=== PATIENT | female | born 1990 | race Caucasian/White ===

== ENCOUNTER 2021-11-30 14:01 | Emergency (ER) | payer BC ==
[2021-11-30 15:10] LABS: Bilirubin Neg (Negative); Blood, Urine Negative (Negative); Clarity Clear (Clear); Glucose, Urine (Dipstick) Normal (Negative); Ketone, Urine Negative (Negative); Leukocyte Negative (Negative); Nitrite Negative (Negative); Protein, Urine (Dipstick) Negative (Neg-Trace); Urobilinogen Normal mg/dL (Less than 2)
[2021-11-30] MEDS ORDERED: Ondansetron PF 4 MG/2 ML Vial ONE (15:25)
[2021-11-30 15:54] LABS: #Monocytes 0.5 10x3/uL (0.0-1.1); #Neutrophils 4.4 10x3/uL (1.5-8.4); %Basophils 0.4 % (0.0-2.0); %Eosinophils 0.2 % (0.0-6.0); %Lymphocytes 7.9 % (18.0-47.0); %Monocytes 9.8 % (0.0-10.0); %Neutrophils 81.3 % (40.0-75.0); Hemoglobin 12.5 g/dL (12.0-15.5); Mean Corpuscular HGB CONC 35.9 g/dL (32.0-36.0); Mean Corpuscular Hemoglobin 31.3 pg (27.0-33.0); Mean Corpuscular Volume 87.2 fl (81.6-98.3); Mean Platelet Volume 10.9 fl (7.4-10.4); Platelet Count 135 10x3/uL (150-450); RBC Distribution Width 12.3 % (11.5-14.5); Red Blood Cell (RBC) Count 3.99 10x6/uL (3.90-5.03); White Blood Cell (WBC) Count 5.4 10x3/uL (3.5-10.5)
[2021-11-30 15:59] LABS: ALT (SGPT) 13 U/L (8-55); AST (SGOT) 19 U/L (5-34); Albumin 4.2 g/dL (3.5-5.0); Alkaline Phosphatase 33 U/L (40-110); Anion Gap 12 mmol/L (10-20); BUN (Urea Nitrogen) 7 mg/dL (7.0-18.7); Bilirubin, Total 0.1 mg/dL (0.2-1.2); Calc. Creatinine Clearance 0 mL/min (70-130); Calcium 9.5 mg/dL (7.8-10.44); Carbon Dioxide 23 mmol/L (22-29); Chloride 102 mmol/L (98-107); Estimated GFR 120; Globulin 2.6 g/dL (2.4-3.5); Glucose 79 mg/dL (70-105); Lipase 9 U/L (8-78); Potassium 3.3 mmol/L (3.5-5.1); Protein, Total 6.8 g/dL (6.0-8.3); Sodium 134 mmol/L (136-145)
[2021-11-30] MEDS ORDERED: Acetaminophen 500 MG TAB ONE (16:40)
== END 2021-11-30 18:47 | disposition home or self-care (01) ==
LOC: CSHERS 14:01
DX: O98.511 Other viral diseases complicating pregnancy, first trimester (principal); U07.1 COVID-19; Z3A.12 12 weeks gestation of pregnancy
CPT/HCPCS: 80053; 81003; 83605; 83690; 85025; 96361; 96374; J2405; U0003; U0005

== ENCOUNTER 2022-05-29 11:12 | Inpatient (IN) | payer BC ==
[~2022-05-29 11:12] MED LIST: Bupivacaine HCl 0.5%/Epinephrine 1:200,000/PF 30 ml Vial ONE; Bupivacaine PF 0.5% 30 ML VIAL ONE; Bupivacaine/Epinephrine 0.25% 30 ML VIAL ONE
[2022-05-29 11:43] VITALS: BMI 32.1
[2022-05-29] MEDS: Lactated Ringer's 1,000 ML IV SCH ×2 (11:59→12:54)
[2022-05-29] MEDS ORDERED: Lidocaine 1% (PF) 30 ML VIAL ONE (12:32)
[2022-05-29] MEDS ORDERED: NS w/ Oxytocin 30 units 500 ML ONE (12:32)
[2022-05-29] MEDS ORDERED: Ibuprofen 800 MG TAB PO PRN (12:41)
[2022-05-29] MEDS ORDERED: NS w/ Oxytocin 30 units 500 ML IV SCH ×2 (12:41)
[2022-05-29] MEDS ORDERED: Promethazine HCl 25 MG/ML VIAL IM PRN ×3 (12:41→19:55)
[2022-05-29] MEDS ORDERED: Misoprostol 200 MCG TAB PR PRN (12:41)
[2022-05-29] MEDS ORDERED: Ondansetron PF 4 MG/2 ML Vial IVP PRN ×3 (12:41→19:55)
[2022-05-29] MEDS ORDERED: Docusate 100 MG CAP PO PRN (12:41)
[2022-05-29] MEDS ORDERED: Zolpidem Tartrate 5 MG TAB PO PRN (12:41)
[2022-05-29] MEDS ORDERED: Lidocaine 1% (PF) 30 ML VIAL SC PRN (12:41)
[2022-05-29] MEDS ORDERED: Butorphanol Tartrate 1 MG/ML VIAL SLOW IVP PRN (12:41)
[2022-05-29] MEDS ORDERED: traMADol HCl 50 MG TAB PO PRN ×2 (12:41)
[2022-05-29] MEDS ORDERED: Misoprostol 100 MCG TAB VAG SCH (12:41)
[2022-05-29] MEDS ORDERED: Diphenoxylate HCl/Atropine Tablet PO PRN ×2 (12:41)
[2022-05-29] MEDS ORDERED: Acetaminophen 500 MG TAB PO PRN (12:41)
[2022-05-29] MEDS ORDERED: hydrALAZINE 20 MG/ML VIAL SLOW IVP PRN (12:41)
[2022-05-29 13:37] LABS: Hemoglobin 14.2 g/dL (12.0-15.5); Mean Corpuscular HGB CONC 35.1 g/dL (32.0-36.0); Mean Corpuscular Hemoglobin 31.9 pg (27.0-33.0); Mean Corpuscular Volume 90.8 fl (81.6-98.3); Mean Platelet Volume 12.2 fl (7.4-10.4); Platelet Count 160 10x3/uL (150-450); RBC Distribution Width 13.2 % (11.5-14.5); Red Blood Cell (RBC) Count 4.45 10x6/uL (3.90-5.03); White Blood Cell (WBC) Count 15.7 10x3/uL (3.5-10.5)
[2022-05-29 14:01] LABS: SARS-CoV-2 NAA Rapid Test Not Detected (NotDetected)
[2022-05-29 14:01] LABS: Syphilis Antibody Nonreactive (Nonreactive); Syphilis Antibody Index 0.03 S/CO (<1.00 Non-Reactive)
[2022-05-29 14:04] LABS: HBSAg Index 0.15 S/CO (0-0.99); HIV (1/2) Antibody/Antigen Non-Reactive (NonReactive); HIV 1/2 INDEX 0.07 S/CO (<1.00); Hep B Surf Ag Non-Reactive S/CO (NonReactive)
[2022-05-29] MEDS ORDERED: Fentanyl 2 mcg/Bup 0.1% Cadd 100 ML ONE (16:32)
[2022-05-29] MEDS ORDERED: Fentanyl 100 MCG/2 ML VIAL ONE (19:04)
[2022-05-29] MEDS ORDERED: Acetaminophen 325 MG TAB PO PRN ×2 (19:54→19:55)
[2022-05-29] MEDS ORDERED: ePHEDrine Sulfate 50 MG/10 ML VIAL SLOW IVP PRN ×2 (19:54→19:55)
[2022-05-29] MEDS ORDERED: Moisturizing Cream (Eucerin) 113 GM JAR TOP PRN ×2 (19:54→19:55)
[2022-05-29] MEDS ORDERED: diphenhydrAMINE 50 MG/ML VIAL IVP PRN ×2 (19:54→19:55)
[2022-05-29] MEDS ORDERED: Lactated Ringer's 500 ML IV PRN ×2 (19:54→19:59)
[2022-05-29] MEDS ORDERED: Naloxone HCl 0.4 mg/ml Vial IVP PRN ×4 (19:54→19:55)
[2022-05-29] MEDS ORDERED: Fentanyl 2 mcg/Bupivacaine 0.1% Cassette 100 ML EPIDURAL SCH (20:00)
[2022-05-29] MEDS ORDERED: Communication Order-Pharmacy FS SCH ×2 (20:00)
[2022-05-29] MEDS ORDERED: Calcium Carbonate 500 MG ChewTAB PO PRN (23:36)
[2022-05-30] MEDS ORDERED: Ondansetron PF 4 MG/2 ML Vial IVP PRN (07:55)
[2022-05-30] MEDS ORDERED: Boostrix 0.5 ML (Tdap) VIAL (>/=7 yrs of age) IM ONE (07:55)
[2022-05-30] MEDS ORDERED: Milk Of Magnesia 30 ML UDCUP PO PRN (07:55)
[2022-05-30] MEDS ORDERED: Preparation H Ointment 28 GM TUBE PR PRN (07:55)
[2022-05-30] MEDS ORDERED: Benzocaine-Menthol 82.5 ML CAN TOP PRN (07:55)
[2022-05-30] MEDS ORDERED: Lanolin Ointment 7 GM TUBE TOP PRN (07:55)
[2022-05-30] MEDS ORDERED: hydrALAZINE 20 MG/ML VIAL SLOW IVP PRN (07:55)
[2022-05-30] MEDS ORDERED: traMADol HCl 50 MG TAB PO PRN (07:55)
[2022-05-30] MEDS ORDERED: diphenhydrAMINE 25 MG CAP PO PRN (07:55)
[2022-05-30] MEDS ORDERED: Bisacodyl 10 MG SUPP PR PRN (07:55)
[2022-05-30] MEDS ORDERED: Witch Hazel-Glycerin 1 EACH JAR TOP PRN (07:58)
[2022-05-30] MEDS ORDERED: Acetaminophen 325 MG TAB PO PRN (07:58)
[2022-05-30] MEDS ORDERED: NS w/ Oxytocin 30 units 500 ML IV SCH (08:00)
[2022-05-30] MEDS: Ibuprofen 800 MG TAB PO SCH ×2 (13:01→21:54)
[2022-05-30] MEDS: Ferrous Sulfate 325 MG TAB PO SCH ×2 (15:30→15:32)
[2022-05-30] MEDS: Docusate 100 MG CAP PO SCH ×2 (15:30→21:54)
[2022-05-30] MEDS: Prenatal Vitamin 1 TAB PO SCH (15:30)
[2022-05-30] MEDS: HYDROcodone/Acetaminophen 5/325 mg Tablet PO PRN (20:08)
[2022-05-30] MEDS ORDERED: Zolpidem Tartrate 5 MG TAB PO PRN (21:00)
[2022-05-31] MEDS: Lactated Ringer's 1,000 ML IV SCH (00:26)
[2022-05-31] MEDS: Ibuprofen 800 MG TAB PO SCH ×2 (04:57→14:07)
[2022-05-31] MEDS: HYDROcodone/Acetaminophen 5/325 mg Tablet PO PRN ×3 (05:02→14:06)
[2022-05-31 05:04] LABS: Hemoglobin 10.9 g/dL (12.0-15.5); Mean Corpuscular HGB CONC 34.5 g/dL (32.0-36.0); Mean Corpuscular Hemoglobin 32.2 pg (27.0-33.0); Mean Corpuscular Volume 93.5 fl (81.6-98.3); Mean Platelet Volume 11.9 fl (7.4-10.4); Platelet Count 133 10x3/uL (150-450); RBC Distribution Width 13.4 % (11.5-14.5); Red Blood Cell (RBC) Count 3.38 10x6/uL (3.90-5.03); White Blood Cell (WBC) Count 14.9 10x3/uL (3.5-10.5)
[2022-05-31 07:58] VITALS: BP 91/50; TEMP 98.2
[2022-05-31] MEDS: Ferrous Sulfate 325 MG TAB PO SCH (09:23)
[2022-05-31] MEDS: Prenatal Vitamin 1 TAB PO SCH (09:24)
[2022-05-31] MEDS: Docusate 100 MG CAP PO SCH (09:24)
== END 2022-05-31 16:37 | disposition home or self-care (01) | DRG 806 ==
LOC: CSHLD 11:12 → CSHPP 05-30 12:48
PROVIDERS: ADMIT Obstetrics & Gynecology; ATTEND Obstetrics & Gynecology
PROC: 10E0XZZ Delivery of Products of Conception, External Approach (ICD-10-PCS; principal; 2022-05-30)
DX: O42.02 Full-term premature rupture of membranes, onset of labor within 24 hours of rupture (principal); O99.354 Diseases of the nervous system complicating childbirth; Z37.0 Single live birth; Z20.822 Contact with and (suspected) exposure to COVID-19; Z88.6 Allergy status to analgesic agent; Z88.0 Allergy status to penicillin; Z3A.39 39 weeks gestation of pregnancy; Z86.16 Personal history of COVID-19; G43.909 Migraine, unspecified, not intractable, without status migrainosus; M79.7 Fibromyalgia; O99.892 Other specified diseases and conditions complicating childbirth; Z79.82 Long term (current) use of aspirin; Z79.899 Other long term (current) drug therapy
CPT/HCPCS: 36415; 51702; 85027; 86780; 86850; 86900; 86901; 87340; 87389; J2590; J7120; S0020; U0002

== ENCOUNTER 2024-07-12 08:54 | Emergency (ER) | payer BC, OTHER ==
[2024-07-12] MEDS ORDERED: Ondansetron PF 4 MG/2 ML Vial ONE (09:26)
[2024-07-12] MEDS ORDERED: Ketorolac Tromethamine 30 MG (1 mL) VIAL ONE (09:27)
[2024-07-12] MEDS ORDERED: Dexamethasone 10 MG/ML VIAL ONE (09:27)
[2024-07-12 10:13] LABS: #Basophils 0.04 10x3/uL (0.0-0.2); #Eosinophils 0.11 10x3/uL (0.0-0.5); #Monocytes 0.49 10x3/uL (0.0-1.1); #Neutrophils 3.32 10x3/uL (1.5-8.4); %Basophils 0.8 % (0.0-2.0); %Eosinophils 2.1 % (0.0-6.0); %Lymphocytes 23.2 % (18.0-47.0); %Monocytes 9.5 % (0.0-10.0); Hematocrit 43.9 % (34.9-44.5); Hemoglobin 15.7 g/dL (12.0-15.5); Mean Corpuscular HGB CONC 35.8 g/dL (32.0-36.0); Mean Corpuscular Hemoglobin 32.2 pg (27.0-33.0); Mean Corpuscular Volume 90.1 fL (81.6-98.3); Mean Platelet Volume 11.9 fL (7.4-10.4); Platelet Count 129 10x3/uL (150-450); RBC Distribution Width 12.4 % (11.5-14.5); Red Blood Cell (RBC) Count 4.87 10x6/uL (3.90-5.03); White Blood Cell (WBC) Count 5.18 10x3/uL (3.5-10.5)
[2024-07-12 10:22] LABS: BHCG - Serum Negative (NEGATIVE); Pregs Control Background? CLEAR/WHITE (CLR/WHITE); Pregs Control Bar Appear? YES (CONTROL BAR)
[2024-07-12 10:30] LABS: ALT (SGPT) 9 U/L (Less than 34); AST (SGOT) 26 U/L (11-34); Albumin 4.7 g/dL (3.1-4.5); Alkaline Phosphatase 41 U/L (40-110); Anion Gap 15 mmol/L (10-20); BUN (Urea Nitrogen) 11 mg/dL (7.0-18.7); Bilirubin, Total 0.4 mg/dL (0.3-1.2); Calc. Creatinine Clearance 0 mL/min (70-130); Calcium 9.4 mg/dL (7.8-10.44); Carbon Dioxide 21 mmol/L (22-29); Chloride 105 mmol/L (98-107); Estimated GFR 97; Globulin 3.7 g/dL (2.4-3.5); Glucose 87 mg/dL (70-105); Potassium 3.4 mmol/L (3.5-5.1); Protein, Total 8.4 g/dL (6.0-8.3); Sodium 138 mmol/L (136-145)
== END 2024-07-12 12:07 | disposition home or self-care (01) ==
LOC: CSHERS 08:54
DX: J18.9 Pneumonia, unspecified organism (principal)
CPT/HCPCS: 71045; 80053; 84703; 85025; 87428; 93005; 96361; 96374; 96375; J1100; J1885; J2405